=== PATIENT | female | born 1985 | race Caucasian/White ===

== ENCOUNTER 2016-11-17 06:08 | Emergency (ER) | payer OTHER ==
[2016-11-17] MEDS ORDERED: ACETAMINOPHEN 325 MG TABLET (FP) PO ONE (06:57)
--- NOTE | 2016-11-17 07:04 | PDOC ---
History of Present Illness - General History Source: Patient Exam Limitations: No Limitations - History of Present Illness Initial Comments: 11/17/16 07:03 CHIEF COMPLAINT: Fever HISTORY OF PRESENT ILLNESS: This is a 31 year old female, 38 weeks , who presents for evaluation of several days of subjective fevers, cough, malaise , and decreased appetite. Her two children are in the ED with similar symptoms. Vital signs on arrival are notable for pulse of 142. REVIEW OF SYSTEMS: GENERAL/CONSTITUTIONAL: Subjective fevers/chills. Generalized weakness. No weight change. HEAD, EYES, EARS, NOSE AND THROAT: Throat pain/painful swallowing. No ear pain or discharge. CARDIOVASCULAR: No chest pain or palpitations. RESPIRATORY: Dry cough. No wheezing or shortness of breath. GASTROINTESTINAL: No nausea, vomiting, diarrhea or constipation. GENITOURINARY: No dysuria, frequency, or change in urination. MUSCULOSKELETAL: No joint or muscle swelling or pain. No neck or back pain. SKIN: No rash or easy bruising. NEUROLOGIC: No headache, vertigo, loss of consciousness, or loss of sensation. ALLERGIC/IMMUNOLOGIC: No hives or skin allergy. No latex allergy. PHYSICAL EXAM: GENERAL: The patient is awake, alert, and fully oriented, in no acute distress. ENT: Pupils equal, round and reactive to light, extraocular movements intact, sclera anicteric, conjunctiva clear. Neck supple. LUNGS: Clear to auscultation bilaterally. Normal excursion. No respiratory distress or use of accessory muscles. CV: RRR, S1/S2, no MRG. Cap refill < 2 sec. ABDOMEN: Soft, gravid uterus, non-tender. EXTREMITIES: Normal range of motion, no edema. NEUROLOGICAL: Normal speech, normal gait. CN II-XII grossly intact. PSYCH: Normal mood, normal affect. SKIN: Warm, dry, normal turgor, no rashes or lesions noted. <Regla Galaviz - Last Filed: 11/17/16 07:47> <Qiana Barcenas - Last Filed: 11/17/16 08:20> - General Stated Complaint: COUGH Time Seen by Provider: 11/17/16 06:41 Past History - Social History Smoking Status: Never smoked Number of Cigarettes Smoked Per Day: 0 <Regla Galaviz - Last Filed: 11/17/16 07:47> <Qiana Barcenas - Last Filed: 11/17/16 08:20> - Past History Allergies/Adverse Reactions: Allergies No Known Drug Allergies Allergy (Verified 04/30/15 10:40) Home Medications: Ambulatory Orders Vitamins ([facility]) - 1 tab PO DAILY 04/30/15 Oseltamivir Phosphate [Tamiflu] 75 mg PO BID #9 capsule 11/17/16 *Physical Exam - Vital Signs Last Vital Signs Temp Pulse Resp BP Pulse Ox 98.4 F 142 H 20 142/124 98 11/17/16 07:12 11/17/16 07:12 11/17/16 07:12 11/17/16 07:12 11/17/16 07:12 <Qiana Barcenas - Last Filed: 11/17/16 08:20> ED Treatment Course - ADDITIONAL ORDERS Additional order review: 11/17/16 06:50 Influenza Types A,B Antigen (NISHA) - Final Nasopharyngeal Swab - Final 11/17/16 06:50 Group A Strep Rapid Antigen - Final Throat - Medications Given in the ED: ED Medications Discontinued Medications Generic Name Dose Route Start Last Admin Trade Name Freq PRN Reason Stop Dose Admin Acetaminophen 650 mg 11/17/16 06:57 11/17/16 07:22 Tylenol - PO 11/17/16 06:58 650 mg ONCE ONE Administration <Qiana Barcenas - Last Filed: 11/17/16 08:20> Medical Decision Making - Medical Decision Making 11/17/16 07:44 A/P: 31 year old female in third trimester of with subjective fevers, cough, malaise, and throat pain. Children with similar symptoms. 1. Tylenol 650mg po for pain 2. Influenza swab 3. Normal saline 1000 mL 4. Repeat HR (tachycardic) Influenza A positive. <Regla Galaviz - Last Filed: 11/17/16 07:47> *DC/Admit/Observation/Transfer - Discharge Dispostion Admit: No <Regla Galaviz - Last Filed: 11/17/16 07:47> - Discharge Dispostion Admit: No <Qiana Barcenas - Last Filed: 11/17/16 08:20> Diagnosis at time of Disposition: Influenza A Qualifiers: Weeks of gestation: 38 weeks Qualified Code(s): Z3A.38 - 38 weeks gestation of - Discharge Dispostion Disposition: HOME Condition at time of disposition: Stable - Prescriptions Prescriptions: Oseltamivir Phosphate [Tamiflu] 75 mg PO BID #9 capsule - Patient Instructions Printed Discharge Instructions: DI for Influenza -- Adult Additional Instructions: -Rest and stay well-hydrated -Take Tamiflu as prescribed for influenza -Take Tylenol if needed for pain or fever -Please notify your data processing manager that you have been diagnosed with the flu -Return here for any concerning symptoms
[2016-11-17 07:14] VITALS: BMI 29.0
[2016-11-17] MEDS ORDERED: ACETAMINOPHEN 325 MG TABLET (FP) ONE (07:16)
[2016-11-17] MEDS ORDERED: SODIUM CHLORIDE 1,000 ML IV STA (07:46)
[2016-11-17] MEDS ORDERED: OSELTAMIVIR PHOSPHATE 75 MG CAPSULE PO ONE (08:18)
[2016-11-17] MEDS ORDERED: OSELTAMIVIR PHOSPHATE 75 MG CAPSULE ONE (08:31)
[2016-11-17 08:35] VITALS: TEMP 98
[2016-11-17 09:22] VITALS: BP 109/71; PULSE 103
== END 2016-11-17 09:32 | disposition home or self-care (01) ==
LOC: JER 06:08
PROC: 3E0337Z Introduction of Electrolytic and Water Balance Substance into Peripheral Vein, Percutaneous Approach (ICD-10-PCS; principal; 2016-11-17)
DX: O98.513 Other viral diseases complicating pregnancy, third trimester (principal); J09.X2 Influenza due to identified novel influenza A virus with other respiratory manifestations; Z3A.38 38 weeks gestation of pregnancy
CPT/HCPCS: 87070; 87430; 87804; 96360; 99282-25